=== PATIENT | male | born 1955 | race Caucasian/White ===

== ENCOUNTER 2023-09-08 23:07 | Inpatient (IN) | payer MEDICARE, MEDICAID ==
[~2023-09-08] VITALS: Ht 172.7 cm; Wt 87.5 kg
--- NOTE | 2023-09-08 23:56 | NUR ---
I have reviewed and agree with all interventions, assessments performed and documented by (CEE SALDANA)
[2023-09-09] VITALS (14 sets, daily range): BP systolic 82–154; BP diastolic 51–97; PULSE 76–142; RESP 14–20; TEMP 97.5–98; O2SAT 92–99
[2023-09-09] MEDS ORDERED: metoclopramide 5 mg/ml inj IV ONE (00:10)
[2023-09-09] MEDS ORDERED: ondansetron/PF 4mg/2ml inj IV ONE (00:10)
[2023-09-09] MEDS ORDERED: pantoprazole 40 MG vial IV ONE (00:10)
[2023-09-09] MEDS ORDERED: morphine 2 MG/ML inj. syringe IV PRN ×2 (00:10→09:20)
[2023-09-09] MEDS ORDERED: mag hydrox/Alum hydrox/simeth 30ml oral suspension PO ONE (00:10)
[2023-09-09] MEDS ORDERED: normal saline 1000ML IV soln IVB ONE (00:10)
[2023-09-09] MEDS ORDERED: LIDOcaine Viscous 15ml cup MM ONE (00:10)
[2023-09-09] MEDS ORDERED: pantoprazole 40MG/NS 100ML BAG 100 ML IV ONE (00:25)
[2023-09-09 01:26] LABS: ALANINE AMINOTRANSFERASE 12 U/L (12-78); ALBUMIN 3.5 G/DL (3.4-5.0); ALKALINE PHOSPHATASE 69 IU/L (46-116); ANION GAP 9 (8-16); ASPARTATE AMINO TRANSFERASE 10 U/L (10-37); BILIRUBIN,TOTAL 0.4 MG/DL (0.1-1.0); BLOOD UREA NITROGEN 14 MG/DL (7-18); BUN/CREATININE RATIO 17.1 (10.0-20.0); CALCIUM 8.8 MG/DL (8.5-10.1); CHLORIDE 101 MMOL/L (99-107); CREATININE 0.82 MG/DL (0.60-1.10); GLUCOSE 70 MG/DL (70-104); POTASSIUM 3.8 MMOL/L (3.5-5.1); SODIUM 137 MMOL/L (135-145); TOTAL CARBON DIOXIDE 26.9 MMOL/L (24-32); eCRCL 82 ML/MIN; eGFR > 90 ML/MIN
[2023-09-09 01:29] LABS: BASOPHILS # (AUTO) 0.1 X10'3 (0-0.2); BASOPHILS % (AUTO) 0.6 % (0-1); EOSINOPHILS # (AUTO) 0.1 X10'3 (0-0.9); HEMATOCRIT 44.4 % (42.0-52.0); LYMPHOCYTES % (AUTO) 19.2 % (21-51); MEAN CORPUSCULAR HEMOGLOBIN 32.2 PG (27.0-31.0); MEAN CORPUSCULAR HGB CONC 33.9 g/dL (33.0-36.5); MEAN CORPUSCULAR VOLUME 95.2 FL (78-98); MEAN PLATELET VOLUME 7.7 FL (7.4-10.4); MONOCYTES # (AUTO) 0.9 X10'3 (0-0.9); NEUTROPHILS # (AUTO) 7.2 X10'3 (1.8-7.7); NEUTROPHILS % (AUTO) 70.2 % (42-75); PLATELET COUNT 214 X10'3 (140-440); RED BLOOD COUNT 4.67 X10'6 (4.70-6.10); RED CELL DISTRIBUTION WIDTH 12.8 % (11.5-14.5); WHITE BLOOD COUNT 10.3 X10'3 (4.5-11.0)
[2023-09-09 01:33] LABS: APTT 28 SECONDS (22-32); PROTHROMBIN TIME 11.2 SECONDS (9.0-12.0)
[2023-09-09 01:44] LABS: CREATINE KINASE 69 U/L (39-308); CREATINE KINASE MB 1.3 ng/ml (0.3-3.6); ETHANOL < 10 MG/DL (<10); LIPASE 18 U/L (16-77); MAGNESIUM 2.3 MG/DL (1.5-2.4)
[2023-09-09] MEDS ORDERED: iohexol 300mg/ml 100ml inj. ONE ×2 (01:45→10:49)
[2023-09-09 07:22] LABS: BILIRUBIN,URINE NEGATIVE (Neg); CLARITY,URINE CLEAR (Clear); COLOR,URINE YELLOW (Yellow); GLUCOSE, URINE 500 mg/dl (Neg); KETONES,URINE TRACE mg/dl (Neg); LEUKOCYTE ESTERASE ,URINE NEGATIVE (Neg); NITRITES, URINE NEGATIVE (Neg); OCCULT BLOOD,URINE NEGATIVE (Neg); PROTEIN,URINE NEGATIVE (Neg); UROBILINOGEN,URINE 0.2 E.U/dL (0.2-1.0)
[2023-09-09 07:25] LABS: UA COLLECTION TYPE CLN CATCH MIDSTREAM
[2023-09-09 07:27] LABS: URINE AMPHETAMINE SCREEN NEGATIVE (Neg); URINE BARBITUATE SCREEN NEGATIVE (Neg); URINE BENZODIAZEPINES SCREEN NEGATIVE (Neg); URINE CANNABINOID SCREEN POSITIVE (Neg); URINE COCAINE SCREEN NEGATIVE (Neg); URINE METHADONE SCREEN NEGATIVE (Neg); URINE OPIATE SCREEN NEGATIVE (Neg); URINE PHENCYCLIDINE SCREEN NEGATIVE (Neg)
--- NOTE | 2023-09-09 08:20 | NUR ---
blood sugar is 71 at this time, provider was made aware, no new orders received at this time
[2023-09-09] MEDS ORDERED: HYDROcodone/acetaminophen 5mg/325mg tablet PO PRN (09:20)
[2023-09-09] MEDS ORDERED: acetaminophen 325mg tablet PO PRN ×2 (09:20)
[2023-09-09] MEDS ORDERED: magnesium hydroxide 30ml (MOM) UD suspension PO PRN (09:20)
[2023-09-09] MEDS ORDERED: potassium Cl 20 mEq SR tablet PO PRN ×2 (09:20)
[2023-09-09] MEDS ORDERED: ondansetron/PF 4mg/2ml inj IV PRN (09:20)
[2023-09-09] MEDS ORDERED: ondansetron 4mg rapidly disintigrating tab PO PRN (09:20)
[2023-09-09] MEDS ORDERED: magnesium Cl slow-release 64mg tablet PO PRN (09:20)
[2023-09-09] MEDS ORDERED: mag hydrox/Alum hydrox/simeth 30ml oral suspension PO PRN (09:20)
[2023-09-09] MEDS: normal saline 1000ml 1,000 ML IV SCH ×2 (10:32→16:07)
--- NOTE | 2023-09-09 11:03 | NUR ---
Attempted to call report, the nurse was in the middle of cleaning up a patient and will call me back
[2023-09-09] MEDS ORDERED: DEXTROSE 15 GM of carb/4 tabs (each vial/BOTTLE has 4 tablets) PO PRN ×2 (11:05)
[2023-09-09] MEDS ORDERED: insulin Lispro (HumaLOG) vial - multi-dose SQ SCH (11:05)
[2023-09-09] MEDS ORDERED: dextrose 50%-water 50ml dispensing syringe IV PRN (11:05)
[2023-09-09] MEDS ORDERED: glucagon, human recombinant 1mg kit SUBCUT PRN (11:05)
[2023-09-09] MEDS: dextrose 50%-water 50ml dispensing syringe IV PRN ×2 (11:22→18:03)
[2023-09-09] MEDS ORDERED: LIDOcaine Viscous 15ml cup ONE (12:25)
[2023-09-09] MEDS ORDERED: MIDAZolam 1 MG/ML 5ML VIAL ONE (12:25)
[2023-09-09] MEDS ORDERED: fentaNYL/PF 50MCG/1 ML 2ML syringe ONE (12:25)
--- NOTE | 2023-09-09 16:22 | NUR ---
PAGER ID: [phone] MESSAGE: Adam Hummel re: [id number] Chandu, A Patient was recommended to have colonoscopy tomorrow by GI, but I don't have any orders for prep or medications at this time. Thanks
[2023-09-09] MEDS ORDERED: PENT400T17 PO (16:28)
[2023-09-09] MEDS ORDERED: APIX5TAB3 PO (16:28)
[2023-09-09] MEDS ORDERED: LINA1TAB5 PO (16:28)
[2023-09-09] MEDS ORDERED: SPIR25TA5 PO (16:28)
[2023-09-09] MEDS ORDERED: FLO0.4C PO (16:28)
[2023-09-09] MEDS ORDERED: DAPA10TA PO (16:28)
[2023-09-09] MEDS ORDERED: LISI2.5T14 PO (16:28)
[2023-09-09] MEDS ORDERED: GABA300C PO (16:28)
[2023-09-09] MEDS ORDERED: ROSU10TA28 PO (16:28)
[2023-09-09] MEDS ORDERED: NALO25TA4 (16:28)
[2023-09-09] MEDS ORDERED: BUPR300T86 PO (16:28)
[2023-09-09] MEDS ORDERED: DUTA0.5C36 PO (16:28)
[2023-09-09] MEDS ORDERED: INSU200I4 SQ (16:28)
[2023-09-09] MEDS ORDERED: DULO60CA65 PO (16:28)
--- NOTE | 2023-09-09 18:28 | NUR ---
PAGER ID: [phone] MESSAGE: Adam Hummel re:[id number] Ordell, A Patient was recommended to have colonoscopy tomorrow by GI, but I don't have any orders for prep or medications at this time. Thanks
--- NOTE | 2023-09-09 18:29 | NUR ---
Problems reprioritized. Patient report given, questions answered & plan of care reviewed with Avrey WEBBER.
[2023-09-09] MEDS: gabapentin 300mg capsule PO SCH (20:35)
[2023-09-09] MEDS: atorvastatin 20mg tablet PO SCH (20:35)
[2023-09-09] MEDS: apixaban 5mg tablet PO SCH (20:36)
--- NOTE | 2023-09-09 20:50 | NUR ---
Called regarding pt's elevated heart rate in the 140's and no history of afib. Patient asymptomatic of fast heart rate. She ordered fluid bolus, tele unit, troponin lab. Call if troponin is elevated. Also changed the ivf's to include dextrose since he is a diabetic and he is npo and blood sugars have been low. Was given order to allow him to take his evening pills since he is npo and has a mass in the esophagus area.
[2023-09-09] MEDS ORDERED: normal saline 500ml IV soln 500 ML IV ONE (20:55)
[2023-09-09] MEDS ORDERED: insulin glargine (Lantus) pen - multi-dose SQ SCH (21:00)
[2023-09-09] MEDS: insulin glargine (Lantus) pen - multi-dose SQ SCH (21:00)
[2023-09-09] MEDS: dextrose 5%-1/2 normal saline 1,000 ML IV SCH (21:31)
[2023-09-09 22:00] LABS: CREATININE 0.74 MG/DL (0.60-1.10); POTASSIUM 3.7 MMOL/L (3.5-5.1); eCRCL 91 ML/MIN; eGFR > 90 ML/MIN
--- NOTE | 2023-09-10 02:37 | NUR ---
Agree with Balta Garcia LVN orientee documentation except where I documented my own findings and reviewed his medication administration records.
[2023-09-10 06:00] VITALS: BP 104/46; PULSE 72; RESP 17; TEMP 96.8; O2SAT 96
--- NOTE | 2023-09-10 06:08 | NUR ---
Patient in room ORTHO 4012. I have received report from Vicenet and had the opportunity to ask questions and assume patient care.
--- NOTE | 2023-09-10 06:30 | NUR ---
Problems reprioritized. Patient report given, questions answered & plan of care reviewed with Alden.
[2023-09-10 07:09] LABS: BASOPHILS % (AUTO) 0.7 % (0-1); EOSINOPHILS # (AUTO) 0.1 X10'3 (0-0.9); EOSINOPHILS % (AUTO) 1.7 % (0-6); HEMOGLOBIN 14.9 g/dl (14.0-17.9); LYMPHOCYTES # (AUTO) 1.3 X10'3 (1.1-4.8); LYMPHOCYTES % (AUTO) 21.3 % (21-51); MEAN CORPUSCULAR HEMOGLOBIN 32.3 PG (27.0-31.0); MEAN CORPUSCULAR HGB CONC 33.8 g/dL (33.0-36.5); MEAN CORPUSCULAR VOLUME 95.7 FL (78-98); MEAN PLATELET VOLUME 7.7 FL (7.4-10.4); MONOCYTES # (AUTO) 0.7 X10'3 (0-0.9); MONOCYTES % (AUTO) 10.9 % (2-12); NEUTROPHILS # (AUTO) 4.1 X10'3 (1.8-7.7); NEUTROPHILS % (AUTO) 65.4 % (42-75); PLATELET COUNT 194 X10'3 (140-440); RED CELL DISTRIBUTION WIDTH 12.5 % (11.5-14.5); WHITE BLOOD COUNT 6.2 X10'3 (4.5-11.0)
[2023-09-10 07:14] LABS: HEMOGLOBIN A1C 6.1 % (4.5-6.2)
[2023-09-10] MEDS ORDERED: PEG 3350/Na sulf,bicarb,Cl/KCl oral sol 4 liter bottle PO ONE (07:15)
[2023-09-10 07:16] LABS: APTT 31 SECONDS (22-32); INR 1.1 INR; PROTHROMBIN TIME 11.5 SECONDS (9.0-12.0)
[2023-09-10 07:18] LABS: ALANINE AMINOTRANSFERASE 14 U/L (12-78); ALBUMIN 3.2 G/DL (3.4-5.0); ALKALINE PHOSPHATASE 65 IU/L (46-116); ANION GAP 8 (8-16); ASPARTATE AMINO TRANSFERASE 12 U/L (10-37); BILIRUBIN,TOTAL 0.4 MG/DL (0.1-1.0); BLOOD UREA NITROGEN 10 MG/DL (7-18); CALCIUM 8.7 MG/DL (8.5-10.1); CHLORIDE 103 MMOL/L (99-107); CREATININE 0.77 MG/DL (0.60-1.10); GLUCOSE 93 MG/DL (70-104); MAGNESIUM 2.2 MG/DL (1.5-2.4); POTASSIUM 3.9 MMOL/L (3.5-5.1); SODIUM 137 MMOL/L (135-145); TOTAL CARBON DIOXIDE 25.9 MMOL/L (24-32); TOTAL PROTEIN 6.4 G/DL (6.4-8.2); eCRCL 88 ML/MIN; eGFR > 90 ML/MIN
[2023-09-10] MEDS: apixaban 5mg tablet PO SCH ×2 (07:22→20:06)
[2023-09-10] MEDS: DAPAGLIFLOZIN 10MG TABLET PO SCH (07:23)
[2023-09-10] MEDS: duloxetine 30mg CAPSULE.DR PO SCH (07:24)
[2023-09-10] MEDS: dutasteride 0.5 MG capsule PO SCH ×2 (07:24→16:48)
[2023-09-10] MEDS: buPROPion SR 150mg tablet PO SCH ×2 (07:25→20:07)
[2023-09-10 07:50] VITALS: RESP 18
[2023-09-10] MEDS: gabapentin 300mg capsule PO SCH ×3 (08:00→20:06)
[2023-09-10 10:00] VITALS: BP 142/69; PULSE 84; RESP 16; TEMP 97.8; O2SAT 98
[2023-09-10] MEDS: dextrose 5%-1/2 normal saline 1,000 ML IV SCH ×2 (13:23→23:35)
--- NOTE | 2023-09-10 15:38 | NUR ---
Diabetes consult: Pt presents with an A1c of 6.1% and BG 65-143mg this admit per EMR. Due to well controlled BG and A1c appropriate, diabetes nutrition education is not warranted at this time. Per RN physical assessment pt has purple color to his lower extremities and an open area to his right ankle resulting in a wound care consult; pending [facility] note. Will continue to monitor. Addendum: 09/10/23 at [address] Amended: Links added.
[2023-09-10] MEDS: spironolactone 25 MG tablet PO SCH (16:47)
[2023-09-10] MEDS: lisinopril 2.5mg tablet PO SCH (16:48)
[2023-09-10 18:00] VITALS: BP 141/63; PULSE 76; RESP 16; TEMP 98; O2SAT 100
--- NOTE | 2023-09-10 18:39 | NUR ---
Report to Kayla WEBBER & Avery RIVERAN
[2023-09-10 20:00] VITALS: RESP 16
[2023-09-10] MEDS: atorvastatin 20mg tablet PO SCH (20:07)
[2023-09-10] MEDS: insulin glargine (Lantus) pen - multi-dose SQ SCH (21:00)
[2023-09-10 22:00] VITALS: BP 135/53; PULSE 85; RESP 18; TEMP 96.8; O2SAT 93
[2023-09-11] VITALS (11 sets, daily range): BP systolic 103–144; BP diastolic 49–83; PULSE 63–98; RESP 15–23; TEMP 97.3–98; O2SAT 94–97
--- NOTE | 2023-09-11 03:05 | NUR ---
TAKE OUT WAITER/WAITRESS documentation: I have reviewed and agree with assessment performed and documented by CEE CASANOVA.UNLESS OTHERWISE CHARTED.
[2023-09-11 06:14] LABS: BASOPHILS % (AUTO) 0.8 % (0-1); EOSINOPHILS # (AUTO) 0.1 X10'3 (0-0.9); EOSINOPHILS % (AUTO) 1.8 % (0-6); HEMATOCRIT 43.6 % (42.0-52.0); HEMOGLOBIN 14.6 g/dl (14.0-17.9); LYMPHOCYTES # (AUTO) 1.2 X10'3 (1.1-4.8); LYMPHOCYTES % (AUTO) 19.5 % (21-51); MEAN CORPUSCULAR HEMOGLOBIN 32.1 PG (27.0-31.0); MEAN CORPUSCULAR HGB CONC 33.6 g/dL (33.0-36.5); MEAN CORPUSCULAR VOLUME 95.4 FL (78-98); MEAN PLATELET VOLUME 7.7 FL (7.4-10.4); MONOCYTES # (AUTO) 0.6 X10'3 (0-0.9); MONOCYTES % (AUTO) 10.5 % (2-12); NEUTROPHILS # (AUTO) 4.2 X10'3 (1.8-7.7); NEUTROPHILS % (AUTO) 67.4 % (42-75); PLATELET COUNT 206 X10'3 (140-440); RED BLOOD COUNT 4.57 X10'6 (4.70-6.10); RED CELL DISTRIBUTION WIDTH 12.5 % (11.5-14.5); WHITE BLOOD COUNT 6.2 X10'3 (4.5-11.0)
--- NOTE | 2023-09-11 06:17 | NUR ---
Problems reprioritized. Patient report given, questions answered & plan of care reviewed with Amira WEBBER.
[2023-09-11 06:27] LABS: APTT 29 SECONDS (22-32); PROTHROMBIN TIME 11.2 SECONDS (9.0-12.0)
[2023-09-11 06:34] LABS: ALANINE AMINOTRANSFERASE 16 U/L (12-78); ALBUMIN 3.4 G/DL (3.4-5.0); ALBUMIN/GLOBULIN RATIO 1.1 (1.1-1.5); ALKALINE PHOSPHATASE 71 IU/L (46-116); ANION GAP 8 (8-16); ASPARTATE AMINO TRANSFERASE 13 U/L (10-37); BILIRUBIN,TOTAL 0.4 MG/DL (0.1-1.0); BLOOD UREA NITROGEN 7 MG/DL (7-18); BUN/CREATININE RATIO 8.8 (10.0-20.0); CALCIUM 8.8 MG/DL (8.5-10.1); CHLORIDE 102 MMOL/L (99-107); GLUCOSE 113 MG/DL (70-104); MAGNESIUM 2.3 MG/DL (1.5-2.4); PHOSPHORUS 3.5 MG/DL (2.3-4.5); POTASSIUM 3.8 MMOL/L (3.5-5.1); SODIUM 138 MMOL/L (135-145); TOTAL CARBON DIOXIDE 28.4 MMOL/L (24-32); TOTAL PROTEIN 6.6 G/DL (6.4-8.2); eCRCL 84 ML/MIN; eGFR > 90 ML/MIN
[2023-09-11] MEDS: gabapentin 300mg capsule PO SCH ×3 (08:00→20:16)
[2023-09-11] MEDS: DAPAGLIFLOZIN 10MG TABLET PO SCH (08:00)
[2023-09-11] MEDS: lisinopril 2.5mg tablet PO SCH (08:57)
[2023-09-11] MEDS: spironolactone 25 MG tablet PO SCH (08:59)
[2023-09-11] MEDS ORDERED: metoprolol tartrate 50mg tablet PO STA (09:33)
[2023-09-11] MEDS ORDERED: PERFLUTREN PROTEIN-A MICROSPHR (Optison) 0.22 MG/ML 3ML VIAL IV ONE (11:10)
[2023-09-11] MEDS ORDERED: fentaNYL/PF 50MCG/1 ML 2ML syringe ONE (12:30)
[2023-09-11] MEDS ORDERED: MIDAZolam 1 MG/ML 5ML VIAL ONE (12:31)
--- NOTE | 2023-09-11 13:44 | NUR ---
PRESSURE ULCER EDUCATION: DEFINITION: A pressure ulcer is an area of skin that breaks down when you stay in one position too long. The constant pressure against the skin reduces the blood flow to that area and the affected tissue dies. CAUSES: "Being bedridden or in a wheelchair "Fragile skin "Having a chronic condition, such as diabetes or vascular disease "Inability to move certain parts of your body without assistance "Older age "Incontinence of urine or stool SYMPTOMS: "A reddened area that DOES NOT turn white when pressed on - this can be the beginning of a pressure ulcer "A blister, deep sore or a crater - these can be advanced pressure ulcers FIRST AID: "Relieve the pressure on this area "Keep the area clean and dry "Call your primary doctor if you see any of the above symptoms "DO NOT massage the area "DO NOT use a donut shaped or ring shaped pillow- these actually interfere with the blood flow and cause complications PREVENTION: "Check for pressure ulcers everyday "Change position at least every two hours to relieve pressure "Use items that help relieve pressure- pillows, sheepskin, foam padding, and powders. "Keep skin clean and dry "Eat healthy well balanced meals "Exercise daily IF YOU SEE ANY OF THESE SYMPTOMS WHILE IN THE HOSPITAL - TELL YOUR NURSE IMMEDIATELY. IF YOU SEE ANY OF THESE SYMPTOMS WHILE AT HOME OR HAVE ANY QUESTIONS OR CONCERNS ABOUT PRESSURE ULCERS - CALL YOUR PRIMARY DOCTOR IMMEDIATELY. Addendum: 09/11/23 at 1344 by Marga Cerda LVN Amended: Links added.
--- NOTE | 2023-09-11 14:10 | NUR ---
Return to room via wc from GI lab. Colonoscopy complete
--- NOTE | 2023-09-11 14:33 | NUR ---
Message: [id number] [place] back from GI. Family on phone w/pt, questions regarding post discharge care. DAYA [id number]
--- NOTE | 2023-09-11 14:58 | NUR ---
Noted per [facility] note pt has a small wound to his right medial ankle that is covered with moist yellow tissue with pink and mildly edematous surrounding skin. No nutrition intervention warranted at this time. Pt is currently on clear liquids diet for possible endoscopy given dysphagia DX per EMR. Will continue to monitor and make recommendations as able. Addendum: 09/11/23 at [address] Amended: Links added.
[2023-09-11] MEDS: apixaban 5mg tablet PO SCH ×2 (15:05→20:16)
[2023-09-11] MEDS: duloxetine 30mg CAPSULE.DR PO SCH (15:05)
[2023-09-11] MEDS: buPROPion SR 150mg tablet PO SCH ×2 (15:05→20:11)
[2023-09-11] MEDS: dextrose 5%-1/2 normal saline 1,000 ML IV SCH (15:10)
[2023-09-11] MEDS: dutasteride 0.5 MG capsule PO SCH (15:20)
--- NOTE | 2023-09-11 19:03 | NUR ---
Report to Courtney WEBBER
[2023-09-11] MEDS: atorvastatin 20mg tablet PO SCH (20:13)
[2023-09-11] MEDS: metoprolol tartrate 25mg tablet PO SCH (20:15)
[2023-09-11] MEDS: insulin glargine (Lantus) pen - multi-dose SQ SCH (21:00)
[2023-09-12] MEDS: dextrose 5%-1/2 normal saline 1,000 ML IV SCH (05:50)
[2023-09-12 06:00] VITALS: BP 111/61; PULSE 65; RESP 18; TEMP 97.7; O2SAT 95
--- NOTE | 2023-09-12 06:42 | NUR ---
Problems reprioritized. Patient report given, questions answered & plan of care reviewed with AKBAR STAPLETON.
[2023-09-12 06:48] LABS: BASOPHILS % (AUTO) 0.7 % (0-1); EOSINOPHILS # (AUTO) 0.1 X10'3 (0-0.9); EOSINOPHILS % (AUTO) 2.2 % (0-6); HEMATOCRIT 44.2 % (42.0-52.0); HEMOGLOBIN 14.7 g/dl (14.0-17.9); LYMPHOCYTES % (AUTO) 17.5 % (21-51); MEAN CORPUSCULAR HEMOGLOBIN 31.7 PG (27.0-31.0); MEAN CORPUSCULAR HGB CONC 33.3 g/dL (33.0-36.5); MEAN CORPUSCULAR VOLUME 95.2 FL (78-98); MEAN PLATELET VOLUME 7.8 FL (7.4-10.4); MONOCYTES # (AUTO) 0.6 X10'3 (0-0.9); MONOCYTES % (AUTO) 9.9 % (2-12); NEUTROPHILS # (AUTO) 4.2 X10'3 (1.8-7.7); NEUTROPHILS % (AUTO) 69.7 % (42-75); PLATELET COUNT 199 X10'3 (140-440); RED BLOOD COUNT 4.65 X10'6 (4.70-6.10); RED CELL DISTRIBUTION WIDTH 12.6 % (11.5-14.5)
[2023-09-12 07:03] LABS: APTT 30 SECONDS (22-32); PROTHROMBIN TIME 11.2 SECONDS (9.0-12.0)
[2023-09-12 07:05] LABS: ALANINE AMINOTRANSFERASE 18 U/L (12-78); ALBUMIN 3.2 G/DL (3.4-5.0); ALBUMIN/GLOBULIN RATIO 0.9 (1.1-1.5); ALKALINE PHOSPHATASE 69 IU/L (46-116); ANION GAP 7 (8-16); ASPARTATE AMINO TRANSFERASE 17 U/L (10-37); BILIRUBIN,TOTAL 0.3 MG/DL (0.1-1.0); BLOOD UREA NITROGEN 4 MG/DL (7-18); BUN/CREATININE RATIO 5.4 (10.0-20.0); CALCIUM 8.8 MG/DL (8.5-10.1); CHLORIDE 103 MMOL/L (99-107); CREATININE 0.74 MG/DL (0.60-1.10); GLUCOSE 126 MG/DL (70-104); MAGNESIUM 2.2 MG/DL (1.5-2.4); PHOSPHORUS 3.7 MG/DL (2.3-4.5); POTASSIUM 3.8 MMOL/L (3.5-5.1); SODIUM 139 MMOL/L (135-145); TOTAL CARBON DIOXIDE 28.8 MMOL/L (24-32); TOTAL PROTEIN 6.6 G/DL (6.4-8.2); eCRCL 91 ML/MIN; eGFR > 90 ML/MIN
[2023-09-12 07:30] VITALS: RESP 18
[2023-09-12] MEDS: buPROPion SR 150mg tablet PO SCH ×2 (08:00→22:19)
[2023-09-12] MEDS: apixaban 5mg tablet PO SCH ×2 (08:00→17:13)
[2023-09-12] MEDS: metoprolol tartrate 25mg tablet PO SCH ×2 (08:00→17:14)
[2023-09-12] MEDS: gabapentin 300mg capsule PO SCH ×3 (08:00→22:19)
[2023-09-12] MEDS ORDERED: NORMAL SALINE IV ONE ×2 (10:00→11:05)
[2023-09-12] MEDS ORDERED: SINCALIDE IV ONE ×2 (10:00→11:05)
--- NOTE | 2023-09-12 11:39 | NUR ---
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 PO 100% first 2 clear liquids meals otherwise NPO for procedures first 2 days this admit. Pt pending MEDIA TRAFFIC MANAGER BSS this AM following HIDA scan per MD during RD visit. RD d/w RN, resident MD, and pt nutrition interventions will depend on MEDIA TRAFFIC MANAGER recs. If pt to be advanced from clear liquids Ensure Enlive TIDWM would be appropriate though if to remain on liquids only diet then prophylactic G-tube may be beneficial to minimize nutrition deficiencies w/ CA treatment. Pt is receiving D5/half NS at 50ml/hr per EMR providing additional 204 kcals/day. LBM 09/11 per EMR. Will monitor for MEDIA TRAFFIC MANAGER recs and further nutrition intervention needs this admit. Rec: 1. advance diet as medically indicated to regular; modifications per MEDIA TRAFFIC MANAGER BSS 2. Do NOT place on carb restriction; A1C 6.1% and now CA DX per EMR 3. IF to advance to at least full liquids; Ensure Enlive TIDWM 4. IF to remain on liquids diet w/ poor PO tolerance; consider G-tube for prophylactic supplemental EN in view of new GE CA DX in EMR 5. routine MVM w/ Fe supplementation given restrictive diet and CA DX 6. scaled wt this admit; subsequent weekly wt Addendum: 09/12/23 at [address] Amended: Links added.
[2023-09-12 16:00] VITALS: BP 139/70; PULSE 71; RESP 16; TEMP 98.1; O2SAT 96
--- NOTE | 2023-09-12 16:55 | NUR ---
Message: [id number] [place] ok to feed him? no more tests or surgery? Amira [phone]
[2023-09-12] MEDS: dutasteride 0.5 MG capsule PO SCH (17:12)
[2023-09-12] MEDS: duloxetine 30mg CAPSULE.DR PO SCH (17:13)
[2023-09-12] MEDS: DAPAGLIFLOZIN 10MG TABLET PO SCH (17:13)
[2023-09-12] MEDS: lisinopril 2.5mg tablet PO SCH (17:16)
[2023-09-12 18:00] VITALS: BP 137/64; PULSE 63; RESP 16; TEMP 97.2; O2SAT 95
--- NOTE | 2023-09-12 18:28 | NUR ---
Report to Courtney WEBBER
[2023-09-12 20:00] VITALS: RESP 18; O2SAT 97
[2023-09-12] MEDS: spironolactone 25 MG tablet PO SCH (20:47)
[2023-09-12] MEDS: insulin glargine (Lantus) pen - multi-dose SQ SCH (21:00)
[2023-09-12 22:00] VITALS: BP 105/49; PULSE 61; RESP 18; TEMP 98; O2SAT 96
[2023-09-12] MEDS: atorvastatin 20mg tablet PO SCH (22:19)
[2023-09-13 06:00] VITALS: BP 110/49; PULSE 64; RESP 16; TEMP 98.3; O2SAT 96
--- NOTE | 2023-09-13 06:11 | NUR ---
Problems reprioritized. Patient report given, questions answered & plan of care reviewed with AKBAR SOTO.
[2023-09-13 06:30] LABS: BASOPHILS % (AUTO) 0.8 % (0-1); EOSINOPHILS # (AUTO) 0.1 X10'3 (0-0.9); EOSINOPHILS % (AUTO) 2.2 % (0-6); HEMATOCRIT 44.1 % (42.0-52.0); HEMOGLOBIN 14.9 g/dl (14.0-17.9); LYMPHOCYTES # (AUTO) 1.1 X10'3 (1.1-4.8); LYMPHOCYTES % (AUTO) 18.2 % (21-51); MEAN CORPUSCULAR HEMOGLOBIN 32.1 PG (27.0-31.0); MEAN CORPUSCULAR HGB CONC 33.8 g/dL (33.0-36.5); MEAN CORPUSCULAR VOLUME 94.8 FL (78-98); MEAN PLATELET VOLUME 7.6 FL (7.4-10.4); MONOCYTES # (AUTO) 0.6 X10'3 (0-0.9); MONOCYTES % (AUTO) 9.2 % (2-12); NEUTROPHILS # (AUTO) 4.3 X10'3 (1.8-7.7); NEUTROPHILS % (AUTO) 69.6 % (42-75); PLATELET COUNT 199 X10'3 (140-440); RED BLOOD COUNT 4.65 X10'6 (4.70-6.10); RED CELL DISTRIBUTION WIDTH 12.4 % (11.5-14.5); WHITE BLOOD COUNT 6.2 X10'3 (4.5-11.0)
[2023-09-13 06:35] LABS: PROTHROMBIN TIME 11.2 SECONDS (9.0-12.0)
[2023-09-13 06:48] LABS: ANION GAP 8 (8-16); BLOOD UREA NITROGEN 5 MG/DL (7-18); BUN/CREATININE RATIO 6.2 (10.0-20.0); CALCIUM 8.7 MG/DL (8.5-10.1); CHLORIDE 103 MMOL/L (99-107); CREATININE 0.81 MG/DL (0.60-1.10); GLUCOSE 118 MG/DL (70-104); MAGNESIUM 2.1 MG/DL (1.5-2.4); PHOSPHORUS 4.3 MG/DL (2.3-4.5); POTASSIUM 3.9 MMOL/L (3.5-5.1); SODIUM 138 MMOL/L (135-145); TOTAL CARBON DIOXIDE 26.7 MMOL/L (24-32); eCRCL 83 ML/MIN; eGFR > 90 ML/MIN
[2023-09-13 06:49] LABS: ALANINE AMINOTRANSFERASE 14 U/L (12-78); ALBUMIN 3.2 G/DL (3.4-5.0); ALBUMIN/GLOBULIN RATIO 0.9 (1.1-1.5); ALKALINE PHOSPHATASE 68 IU/L (46-116); ASPARTATE AMINO TRANSFERASE 10 U/L (10-37); BILIRUBIN,TOTAL 0.4 MG/DL (0.1-1.0); TOTAL PROTEIN 6.6 G/DL (6.4-8.2)
--- NOTE | 2023-09-13 06:58 | NUR ---
Patient in room ORTHO 4012. I have received report from Courtney and had the opportunity to ask questions and assume patient care.
--- NOTE | 2023-09-13 06:58 | NUR ---
Problems reprioritized. Patient report given, questions answered & plan of care reviewed with AKBAR KAUR.
[2023-09-13] MEDS: gabapentin 300mg capsule PO SCH ×2 (09:13→14:11)
[2023-09-13] MEDS: apixaban 5mg tablet PO SCH (09:14)
[2023-09-13] MEDS: buPROPion SR 150mg tablet PO SCH (09:14)
[2023-09-13] MEDS: duloxetine 30mg CAPSULE.DR PO SCH (09:14)
[2023-09-13] MEDS: spironolactone 25 MG tablet PO SCH (09:15)
[2023-09-13 09:16] VITALS: BP_SYST 113
[2023-09-13] MEDS: metoprolol tartrate 25mg tablet PO SCH (09:16)
[2023-09-13] MEDS: lisinopril 2.5mg tablet PO SCH (09:16)
[2023-09-13] MEDS: dextrose 5%-1/2 normal saline 1,000 ML IV SCH (09:38)
[2023-09-13 11:00] VITALS: PULSE 59; RESP 14; TEMP 97.4; O2SAT 97
[2023-09-13] MEDS: DAPAGLIFLOZIN 10MG TABLET PO SCH (14:11)
[2023-09-13] MEDS: dutasteride 0.5 MG capsule PO SCH (14:12)
[2023-09-13] MEDS ORDERED: NICO-687 TOP (14:40)
[2023-09-13] MEDS ORDERED: MULT9LIQ6 PO (14:40)
[2023-09-13] MEDS ORDERED: METO-395 PO (21:52)
== END 2023-09-13 15:45 | disposition home or self-care (01) | DRG 375 ==
LOC: ER 23:08 → ED HOLD 09-09 09:26 → UNDOADMIN 09-09 09:26 → ED HOLD 09-09 12:08 → ORTHO 4S 09-09 12:08 → ED HOLD 09-10 17:05 → ORTHO 4S 09-10 17:05
PROVIDERS: ADMIT Internal Medicine; ATTEND Internal Medicine
PROC: 0DB48ZX Excision of Esophagogastric Junction, Via Natural or Artificial Opening Endoscopic, Diagnostic (ICD-10-PCS; principal; 2023-09-09)
PROC: BW211ZZ Computerized Tomography (CT Scan) of Abdomen and Pelvis using Low Osmolar Contrast (ICD-10-PCS; 2023-09-09)
PROC: BW251ZZ Computerized Tomography (CT Scan) of Chest, Abdomen and Pelvis using Low Osmolar Contrast (ICD-10-PCS; 2023-09-09)
PROC: 0DBP8ZX Excision of Rectum, Via Natural or Artificial Opening Endoscopic, Diagnostic (ICD-10-PCS; 2023-09-11)
PROC: 0DBK8ZZ Excision of Ascending Colon, Via Natural or Artificial Opening Endoscopic (ICD-10-PCS; 2023-09-11)
PROC: 0DBN8ZZ Excision of Sigmoid Colon, Via Natural or Artificial Opening Endoscopic (ICD-10-PCS; 2023-09-11)
PROC: CF1C1ZZ Planar Nuclear Medicine Imaging of Hepatobiliary System, All using Technetium 99m (Tc-99m) (ICD-10-PCS; 2023-09-12)
DX: C15.9 Malignant neoplasm of esophagus, unspecified (principal); E44.1 Mild protein-calorie malnutrition; I48.20 Chronic atrial fibrillation, unspecified; I50.30 Unspecified diastolic (congestive) heart failure; K80.20 Calculus of gallbladder without cholecystitis without obstruction; I11.0 Hypertensive heart disease with heart failure; D12.2 Benign neoplasm of ascending colon; E11.9 Type 2 diabetes mellitus without complications; E27.8 Other specified disorders of adrenal gland; J43.9 Emphysema, unspecified; K64.8 Other hemorrhoids; K76.0 Fatty (change of) liver, not elsewhere classified; K82.8 Other specified diseases of gallbladder; Z87.891 Personal history of nicotine dependence; Z68.29 Body mass index [BMI] 29.0-29.9, adult
CPT/HCPCS: 36415; 43239; 45380; 45385; 71045; 71260; 74177; 76700; 78227; 80053; 80305; 80320; 81003; 82550; 82553; 82565; 82948; 83036; 83605; 83690; 83735; 84100; 84132; 84484; 85025; 85610; 85730; 86885; 86900; 86901; 87040; 87081; 92508; 92616; 93005; 93306; 99152; 99153; 99285; A4620; A4649; A6250; A6446; A6449; A9537; C1889; C9113; G0378; J1815; J2250; J2405; J2765; J2805; J3010; J3490; J7030; J7040; J7042; Q9967